=== PATIENT | female | born 1990 | race Caucasian/White ===

== ENCOUNTER 2016-12-29 13:00 | Inpatient (IN) | payer OTHER ==
[~2016-12-29] VITALS: Ht 175.3 cm; Wt 77.1 kg
--- NOTE | ~2016-12-29 | PN ---
Unit #: [id number] #: [id number] Patient: NAHUM ENGLISH [id number] [facility] [address] [place] [address] [id number] MR#: [id number] NAME: NAHUM ENGLISH. ROOM: P132 Age: 26 Sex: F Admission Date: 12/29/2016 : 1990 Attending Physician: Rajinder Glynn M.D. Admitting Physician: Rajinder Glynn M.D. Primary Care Physician: Hola Solano PROGRESS NOTES DATE 12/30/2016 DISCUSSION Ms. Nahum English is a 26-year-old female, seen on 12/30/2016. The patient withdrawn, isolative, guarded, still somewhat delusional but denied thoughts of harming self or others. The patient still isolative. Vital signs stable, but initially refused. REVIEW OF SYSTEMS Complete review of systems unremarkable. MENTAL STATUS EXAMINATION General appearance: Patient dressed casually. Attention span and concentration, poor. Orientation in self and place. Mood and affect, labile. Speech, slow. Thought process, circumstantial. Association, guarded, paranoid. Mood lability delusional. Denied any suicidal ideation or homicidal ideation but having psychotic symptoms. Recent and remote memory, poor. Insight and judgment, poor. DIAGNOSES 1. Psychosis, NOS. 2. Rule out schizophrenia. 3. History of cannabis abuse. 4. Opiate abuse, moderate. ASSESSMENT/PLAN Advised to continue with the current combination of Celexa and Zyprexa, if needed consider further adjustment of medication. Continue with the inpatient programming at this time. Dictated by... Hola Albrecht/meg TD: 12/31/2016 12:13 JOB #: [id number] Unit #: [id number] #: [id number] Patient: NAHUM ENGLISHJOHN PROGRESS NOTES Page 1 of 1 X Rajinder Glynn MD X PROGRESS NOTE
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
--- NOTE | ~2016-12-29 | HP ---
Unit #: [id number] #: [id number] Patient: NAHUM ENGLISH [id number] [place] [address] [id number] I MR#: [id number] NAME: NAHUM ENGLISH. ROOM: P132 Age: 26 Sex: F Admission Date: 12/29/2016 : 1990 Attending Physician: Rajinder Glynn M.D. Admitting Physician: Rajinder Glynn M.D. Primary Care Physician: Paz Willson M.D. HISTORY AND PHYSICAL HISTORY OF PRESENT ILLNESS The patient is a 26-year-old female admitted to [address] [place] [address] on 12/29/2016 for psychosis. PAST MEDICAL HISTORY The patient denies. PAST SURGICAL HISTORY LEEP procedure. SOCIAL HISTORY She is unemployed. She denies alcohol, tobacco, and drug use. FAMILY MEDICAL HISTORY Noncontributory. ALLERGIES Latex CURRENT MEDICATIONS The patient is not on any home medications. REVIEW OF SYSTEMS CONSTITUTIONAL: No fever or chills. HEENT: Denies any sore throat, ear pain or runny nose. CARDIOVASCULAR: Denies chest pain, irregular heart rhythm or palpitations. CHEST: Denies shortness of breath or cough. No hemoptysis. GASTROINTESTINAL: Denies nausea, vomiting, diarrhea or chronic constipation. ENDOCRINE: Denies history of increased thirst or urination. No recent significant weight loss or gain. GENITOURINARY: Denies dysuria, frequency, or hematuria. SKIN: Denies any rashes. HEMATOLOGIC: Denies history of increased bleeding or bruising. MUSCULOSKELETAL: Denies any hot, swollen joints. No generalized muscle pain. NEUROLOGIC: Denies problems with vision or speech. No frequent, severe headaches. No numbness, tingling or weakness in any extremities. Denies loss of bladder or bowel control. PHYSICAL EXAM GENERAL: She is awake, alert and oriented in no acute distress. VITAL SIGNS: Temperature 97.6, heart rate 101, respiration 18, blood Unit #: [id number] #: [id number] Patient: NAHUM ENGLISH pressure 94/66. HEIGHT: 5'9". WEIGHT: 170 pounds. SKIN: Warm and dry without rash or lesion. HEENT: Normocephalic. TMs not viewed. Oral and nasal passages clear. Conjunctivae clear. PERRLA. EOMs intact. NECK: Supple without lymphadenopathy or thyromegaly. HEART: Regular rate and rhythm without murmur. LUNGS: Clear. ABDOMEN: Soft, nontender. : Not done. EXTREMITIES: No evidence of cyanosis, clubbing or edema. Moves all without focal deficit. NEUROLOGICAL: Grossly within normal limits. Cranial Nerves: II: Visual duff are intact. III, IV AND : Extraocular movements are intact. Pupils are equal, round and reactive to light. V: Facial sensation is grossly normal. VII: Facial movements and expression are normal. VIII: Auditory acuity grossly intact. IX, X: Uvula is midline. Phonation is normal. XI: Patient shrugs shoulders and turns head normally. XII: Tongue protrudes in the midline. Sensory and Motor Function: Sensory and motor sensation is grossly normal. Motor: moves all extremities well. IMPRESSION Psychiatric admission. RECOMMENDATIONS Psychiatric per psychiatrist. MEDICAL: No contraindication to participate in facility activities. MEDICAL PROGNOSIS Good. MEDICAL CONDITION Stable. Dictated by... Kimberly Cummings/ana TD: 12/31/2016 02:07 JOB #: [id number] Unit #: [id number] #: [id number] Patient: NAHUM ENGLISH HISTORY AND PHYSICAL Page 1 of 1 X JEANNETTE OLIVIA APRN HISTORY AND PHYSICAL
--- NOTE | ~2016-12-29 | PN ---
Unit #: [id number] #: [id number] Patient: NAHUM ENGLISH [id number] [facility] [address] [place] [address] [id number] I MR#: [id number] NAME: NAHUM ENGLISH. ROOM: P132 Age: 26 Sex: F Admission Date: 12/29/2016 : 1990 Attending Physician: Rajinder Glynn M.D. Admitting Physician: Rajinder Glynn M.D. Primary Care Physician: Hola Solano PROGRESS NOTES DATE 12/31/2016 DISCUSSION Ms. Nahum English is a 26-year-old female. Patient interviewed. Chart reviewed. Obtained information from nursing staff. Patient reports feeling better. Compliant with medication. Still somewhat isolative, guarded. Vital signs, 96.6, 72, 16, 106/61. Patient thoughts were somewhat disorganized, guarded but compliant with medication. Complete review of system unremarkable. MENTAL STATUS EXAMINATION General appearance, patient dressed casually. Attention span, concentration fair. Oriented in place and person. Mood and affect labile. Speech monotone. Thought process concrete. Patient denied any thoughts of harming self or others but somewhat guarded, paranoid. Recent and remote memory poor. Insight and judgement poor. DIAGNOSES 1. Psychosis NOS. 2. Rule out schizophrenia. 3. History of amphetamine abuse. ASSESSMENT/PLAN Advised to continue with the current medication and therapeutic protocol. If needed, consider further adjustment of medication. Dictated by... Hola Albrecht/gem TD: 01/01/2017 23:09 JOB #: [id number] Unit #: [id number] #: [id number] Patient: NAHUM ENGLISH PROGRESS NOTES Page 1 of 1 X Rajinder Glynn MD X PROGRESS NOTE
--- NOTE | ~2016-12-29 | DS ---
Unit #: [id number] #: [id number] Patient: NAHUM ENGLISH [id number] [facility] [address] [place] [address] [id number] I MR#: [id number] NAME: NAHUM ENGLISH. ROOM: P132 Age: 26 Sex: F Admission Date: 12/29/2016 : 1990 Discharge Date: 01/01/2017 Attending Physician: Rajinder Glynn M.D. Primary Care Physician: Paz Willson M.D. DISCHARGE SUMMARY REASON FOR ADMISSION Psychosis. DIAGNOSTIC STUDIES LABORATORY RESULTS: Unavailable at this time. HOSPITAL COURSE The patient was admitted to inpatient unit on 12/29/2016 and discharged on 01/01/2017. The patient was treated on the inpatient unit with group therapy, individual therapy, medication management. The patient was responsive to treatment, showed improvement. Subsequently, the patient was discharged with a plan to follow up in outpatient program. DISCHARGE MEDICATIONS Trazodone 50 mg at bedtime for sleep, Zyprexa 5 mg at bedtime for psychosis, and Celexa 20 mg daily for depression. DISCHARGE DIAGNOSES Psychiatric: Psychosis, not otherwise specified, F29.0; rule out schizophrenia, chronic paranoid type, F20.0; cannabis abuse, moderate, F12.20; amphetamine use disorder, severe, F15.20. Secondary diagnosis: Deferred. Medical diagnosis: None. Stressors: Psychosocial stressors. DISCHARGE INSTRUCTIONS The patient to follow up in outpatient clinic as per social organization professor. CONDITION ON DISCHARGE The patient was pleasant and cooperative. Denied any psychotic symptom or any suicidal ideation. PROGNOSIS Guarded. DIET AND ACTIVITY As tolerated. Dictated by... Unit #: [id number] #: [id number] Patient: NAHUM ENGLISH Hola AlbrechtC/arielal TD: 01/02/2017 02:12 JOB #: [id number] DISCHARGE SUMMARY Page 1 of 1 X Rajinder Glynn MD X DISCHARGE SUMMARY
[~2016-12-29 13:00] MED LIST: ALBUTEROL17 G1; ALBUTEROL17 GM INH; BENADRYL PO; BIRTH CONTROL PILL PO; CLARITIN D; DARVOCET-N 1001 TAB PO; DICLOFENAC PO; DOXYCYCLINE PO; IBUPROFEN600 MG PO; NORCO 5/325 TAB1 TAB PO; PEN-VEE K PO; PENICILLIN PO; PHENERGAN DM1 ML PO; PRENATAL1 TA1 PO; ROBITUSSIN ALL118 ML PO; TAMIFLU75 M1 PO; VIBRAMYCIN100 M1 PO; VICODIN 5/500 T1 TAB PO; VOLTAREN75 MG PO; ZITHROMAX PO; [UNRECOGNIZED DRUG - SUPPLY]
== END 2017-01-01 15:46 | disposition home or self-care (01) | DRG 885 ==
LOC: P1S 15:59
PROC: HZ2ZZZZ Detoxification Services for Substance Abuse Treatment (ICD-10-PCS; principal; 2016-12-29)
DX: F29 Unspecified psychosis not due to a substance or known physiological condition (principal); F15.20 Other stimulant dependence, uncomplicated; F20.0 Paranoid schizophrenia; F12.20 Cannabis dependence, uncomplicated